=== PATIENT | female | born 1950 | race Caucasian/White ===

== ENCOUNTER 2016-05-07 18:55 | Emergency (ER) | payer BC ==
[~2016-05-07] VITALS: Ht 165.1 cm; Wt 68.0 kg
[2016-05-07] MEDS ORDERED: FLUT1DIS5 IH (19:13)
[2016-05-07] MEDS ORDERED: IPRA3AMP IH (19:13)
[2016-05-07] MEDS ORDERED: BUDE0.253 IH (19:13)
[2016-05-07] MEDS ORDERED: TIOT18CA3 IH (19:13)
[2016-05-07] MEDS ORDERED: QUET50TA PO (19:13)
[2016-05-07] MEDS ORDERED: ATOR40TA PO (19:13)
[2016-05-07] MEDS ORDERED: OLAN2.5T3 PO (19:13)
[2016-05-07] MEDS ORDERED: SERT100T PO (19:13)
[2016-05-07] MEDS ORDERED: OLAN7.5T3 PO (19:13)
[2016-05-07] MEDS ORDERED: TOPI100T11 PO (19:13)
[2016-05-07 19:58] LABS: ANION GAP 13 (5-14); CALCIUM, SERUM 8.8 mg/dL (8.5-10.1); CARBON DIOXIDE 24 mmol/L (21-32); CHLORIDE 107 mmol/L (98-107); CREATININE 1.1 mg/dL (0.6-1.3); GFR 50 mL/min (>60); GLUCOSE 87 mg/dL (74-106); POTASSIUM 3.6 mmol/L (3.5-5.1); SODIUM SERUM 140 mmol/L (136-145); UREA NITROGEN, BLOOD 11 mg/dL (7-18)
[2016-05-07 20:03] LABS: ALANINE AMINOTRANSFERASE 16 U/L (12-78); ALBUMIN 3.3 g/dL (3.4-5.0); ASPARTATE AMINOTRANSFERASE 17 U/L (15-37); BILIRUBIN,DIRECT 0.1 mg/dL (0.0-0.2); BILIRUBIN,TOTAL 0.4 mg/dL (0.2-1.0); INDIRECT BILIRUBIN 0.3 mg/dL (0.0-1.1)
[2016-05-07 20:05] LABS: TROPONIN I < 0.017 ng/mL (0.00-0.056)
[2016-05-07 20:06] LABS: BASOPHILS # (AUTO) 0.1 /CMM (0.0-0.2); BASOPHILS % (AUTO) 1.3 % (0.0-2.0); DIFF TOTAL % 100 %; EOSINOPHILS # (AUTO) 0.2 /CMM (0.0-0.7); EOSINOPHILS % (AUTO) 2.2 % (0.0-6.0); HEMATOCRIT 41 % (33-45); HEMOGLOBIN 13.2 g/dL (11.5-14.8); LYMPHOCYTES # (AUTO) 2.6 /CMM (0.8-4.8); LYMPHOCYTES % (AUTO) 33.6 % (20.0-44.0); MEAN CORPUSCULAR HEMOGLOBIN 29 PG (26.0-33.0); MEAN CORPUSCULAR HGB CONC 32 g/dl (31.0-36.0); MEAN CORPUSCULAR VOLUME 89 fL (82-100); MONOCYTES # (AUTO) 0.5 /CMM (0.1-1.30); MONOCYTES % (AUTO) 6.6 % (2.0-12.0); NEUTROPHILS # (AUTO) 4.4 /CMM (1.8-8.9); NEUTROPHILS % (AUTO) 56.3 % (43.0-81.0); PLATELET COUNT (AUTO) 345 /CMM (150-450); RED BLOOD CELL COUNT(AUTO) 4.57 MIL/uL (4.0-5.2); WHITE BLOOD COUNT (AUTO) 7.8 K/uL (4.3-11.0)
[2016-05-07 21:50] VITALS: BP 144/78
== END 2016-05-07 21:53 | disposition home or self-care (01) ==
LOC: ER 18:57
DX: K21.9 Gastro-esophageal reflux disease without esophagitis (principal); R07.89 Other chest pain; F41.9 Anxiety disorder, unspecified; J44.9 Chronic obstructive pulmonary disease, unspecified; F17.210 Nicotine dependence, cigarettes, uncomplicated
CPT/HCPCS: 36415; 71010; 80048; 80076; 83690; 84484; 85025; 93005; 99285; A4606; Z7610

== ENCOUNTER 2023-05-09 10:49 | Emergency (ER) | payer MEDICARE, BC ==
[~2023-05-09] VITALS: Ht 162.6 cm; Wt 53.1 kg
[~2023-05-09 10:49] MED LIST: ATOR40TA PO; BUDE0.253 IH; FLUT1DIS5 IH; IPRA3AMP22 IH; OLAN2.5T3 PO; OLAN7.5T3 PO; QUET50TA PO; SERT100T PO; TIOT18CA3 IH; TOPI100T PO
[2023-05-09] MEDS ORDERED: GADOTERATE MEGLUMINE 5 MMOL/10 ML VIAL IV ONE (10:53)
[2023-05-09] MEDS ORDERED: CT SWABBABLE VALVE TRANS SET 1 EA INFUS.SET MC ONE (11:13)
[2023-05-09] MEDS ORDERED: IOHEXOL-350 100 ML VIAL IV ONE (11:13)
[2023-05-09] MEDS ORDERED: IV NS 0.9% 250 ML IV ONE (11:13)
[2023-05-09 11:22] LABS: BASOPHILS # (AUTO) 0.1 K/uL (0.0-0.2); BASOPHILS % (AUTO) 1.3 % (0.0-2.0); EOSINOPHILS # (AUTO) 0.2 K/uL (0.0-0.7); HEMATOCRIT 43 % (33-45); HEMOGLOBIN 14.3 g/dL (11.5-14.8); LYMPHOCYTES # (AUTO) 2.2 K/uL (0.8-4.8); LYMPHOCYTES % (AUTO) 29.9 % (20.0-44.0); MEAN CORPUSCULAR HEMOGLOBIN 30 PG (26.0-33.0); MEAN CORPUSCULAR HGB CONC 34 g/dl (31.0-36.0); MEAN CORPUSCULAR VOLUME 90 fL (82-100); MONOCYTES # (AUTO) 0.5 K/uL (0.1-1.30); MONOCYTES % (AUTO) 6.3 % (2.0-12.0); NEUTROPHILS # (AUTO) 4.4 K/uL (1.8-8.9); NEUTROPHILS % (AUTO) 59.5 % (43.0-81.0); PLATELET COUNT (AUTO) 278 K/uL (150-450); RED BLOOD CELL COUNT(AUTO) 4.76 MIL/uL (4.0-5.2); RED CELL DISTRIBUTION WIDTH 15.7 % (11.5-15.0); WHITE BLOOD COUNT (AUTO) 7.4 K/uL (4.3-11.0)
[2023-05-09 11:25] LABS: CALCIUM, SERUM 9.8 mg/dL (8.5-10.1); CARBON DIOXIDE 29 mmol/L (21-32); CHLORIDE 103 mmol/L (98-107); CREATININE 0.9 mg/dL (0.6-1.3); GLUCOSE 100 mg/dL (74-106); POTASSIUM 4.3 mmol/L (3.5-5.1); SODIUM SERUM 139 mmol/L (136-145); UREA NITROGEN, BLOOD 13 mg/dL (7-18)
[2023-05-09 11:30] LABS: INR 1.01 (0.91-1.10); PARTIAL THROMBOPLASTIN TIME 28.1 SEC (24.3-34.3); PROTHROMBIN TIME 10.7 SECS (9.2-11.1)
[2023-05-09 11:30] LABS: ALANINE AMINOTRANSFERASE 25 U/L (12-78); ALBUMIN 3.8 g/dL (3.4-5.0); ALKALINE PHOSPHATASE 130 U/L (46-116); ASPARTATE AMINOTRANSFERASE 17 U/L (15-37); BILIRUBIN,DIRECT 0.1 mg/dL (0.0-0.2); BILIRUBIN,TOTAL 0.5 mg/dL (0.2-1.0); TOTAL PROTEIN, SERUM 7.7 g/dL (6.4-8.2)
[2023-05-09] MEDS ORDERED: IV NS 0.9% 1,000 ML BAG IV ONE (11:30)
[2023-05-09] MEDS ORDERED: PROP10TA68 PO (11:34)
[2023-05-09] MEDS ORDERED: LEVO15TA5 PO (11:34)
[2023-05-09] MEDS ORDERED: SERT100T PO (11:34)
[2023-05-09] MEDS ORDERED: CHOL200059 PO (11:34)
[2023-05-09] MEDS ORDERED: FLUT1BLS6 IH (11:34)
[2023-05-09] MEDS ORDERED: QUET25TA PO (11:34)
[2023-05-09] MEDS ORDERED: DIAZ10TA PO (11:34)
[2023-05-09] MEDS ORDERED: CARI1.5C PO (11:34)
[2023-05-09] MEDS ORDERED: METF-440 PO (11:34)
[2023-05-09 11:50] LABS: LACTIC ACID 0.7 mmol/L (0.4-2.0)
[2023-05-09] MEDS ORDERED: ASPIRIN 81 MG TAB.CHEW PO ONE (12:30)
[2023-05-09] MEDS ORDERED: ONDANSETRON HCL/PF - ER 4 MG/2 ML VIAL IV ONE (12:30)
[2023-05-09] MEDS ORDERED: MECLIZINE HCL 12.5 MG TABLET PO ONE (12:30)
[2023-05-09] MEDS ORDERED: ASPIRIN 81 MG TAB.CHEW ONE (12:56)
[2023-05-09] MEDS ORDERED: ONDANSETRON HCL/PF 4 MG/2 ML VIAL ONE (12:56)
[2023-05-09] MEDS ORDERED: MECLIZINE HCL 25 MG TABLET ONE (12:56)
[2023-05-09] MEDS ORDERED: CLOPIDOGREL BISULFATE 300 MG TABLET PO ONE (13:00)
[2023-05-09] MEDS ORDERED: CLOPIDOGREL BISULFATE 75 MG TABLET ONE (13:06)
[2023-05-09 14:33] LABS: APPEARANCE,URINE CLEAR (CLEAR); BILIRUBIN,URINE NEGATIVE (NEGATIVE); BLOOD, URINE NEGATIVE Ery/uL (NEGATIVE); COLOR,URINE YELLOW (YELLOW); KETONES,URINE NEGATIVE (NEGATIVE); LEUKOCYTE ESTERASE ,URINE NEGATIVE (NEGATIVE); NITRITE, URINE NEGATIVE (NEGATIVE); PH,URINE 6.5 (5.0-8.0); PROTEIN,URINE NEGATIVE (NEGATIVE); UGLUCOSE NEGATIVE (NEGATIVE); UROBILINOGEN,URINE 0.2 EU/dL (0.2)
[2023-05-09] MEDS ORDERED: DIAZEPAM 5 MG TABLET PO STA (15:02)
[2023-05-09] MEDS ORDERED: CHLORDIAZEPOXIDE HCL 25 MG CAPSULE ONE (15:28)
[2023-05-09] MEDS ORDERED: Z GUARD REMEDY 4 OZ OINT TP PRN (15:30)
[2023-05-09] MEDS ORDERED: DIAZEPAM 5 MG TABLET PO PRN (15:30)
[2023-05-09] MEDS ORDERED: IV NS 0.9% 1,000 ML IV PRN (15:30)
[2023-05-09] MEDS ORDERED: ACETAMINOPHEN 325 MG TABLET PO PRN (15:30)
[2023-05-09] MEDS ORDERED: ONDANSETRON HCL/PF 4 MG/2 ML VIAL IVP PRN (15:30)
[2023-05-09] MEDS ORDERED: DIAZEPAM 5 MG TABLET ONE (15:31)
[2023-05-09] MEDS ORDERED: LORAZEPAM INJ 2 MG/ML VIAL ONE (15:47)
[2023-05-09] MEDS ORDERED: LORAZEPAM INJ 2 MG/ML VIAL IV PRN (16:00)
[2023-05-09] MEDS ORDERED: FLUTICASONE/SALMETEROL DISKUS IH SCH (17:00)
[2023-05-09] MEDS ORDERED: PROPRANOLOL HCL 10 MG TABLET PO SCH (17:00)
[2023-05-09 18:04] LABS: THYROID STIMULATING HORMONE 4.613 uIU/mL (0.358-3.74)
[2023-05-09 18:41] VITALS: BP 127/76; TEMP 97.5; O2SAT 100
[2023-05-09] MEDS ORDERED: QUETIAPINE FUMARATE 25 MG TABLET PO SCH (22:00)
[2023-05-09] MEDS ORDERED: ATORVASTATIN 40 MG TABLET PO SCH (22:00)
[2023-05-10] MEDS ORDERED: PANTOPRAZOLE 40 MG TABLET.DR PO SCH (07:30)
[2023-05-10] MEDS ORDERED: ASPIRIN EC 81 MG TABLET.DR PO SCH (09:00)
[2023-05-10] MEDS ORDERED: SERTRALINE HCL 50 MG TABLET PO SCH (09:00)
== END 2023-05-09 18:39 | disposition left against medical advice (07) ==
LOC: ER 10:52 → TELE 14:37 → UNDOADMIN 14:37 → TELE 18:39 → ER 18:39
DX: R42 Dizziness and giddiness (principal); J44.9 Chronic obstructive pulmonary disease, unspecified; F17.200 Nicotine dependence, unspecified, uncomplicated; Z79.899 Other long term (current) drug therapy
CPT/HCPCS: 70553; 99285; 70498; 96374; 71045; 96361; 96375; 80061; 93005; 70496; 85025; 80048; 87040 ×2; 83605; 80076; 83036; 81003; 36415; 84443; 84484; 85730; 82962; 70544; 70450; J8597; J2060; J2405 ×2; J7030; J7050; Q9967; A9575; G0378